=== PATIENT | female | born 2000 | race Caucasian/White ===

== ENCOUNTER 2023-10-25 22:42 | Emergency (ER) | payer OTHER ==
[~2023-10-25] VITALS: Ht 165.1 cm; Wt 52.2 kg
[2023-10-26] MEDS: LIDOCAINE HCL 2% 20 ML VIAL TP ONE (00:24)
[2023-10-26] MEDS ORDERED: SULFAMETH/TRIMETH 800/160 MG TABLET ONE (00:25)
[2023-10-26] MEDS ORDERED: IBUPROFEN 400 MG TABLET ONE (00:25)
[2023-10-26] MEDS ORDERED: HYDROCODONE/APAP 5-325MG TABLET ONE (00:26)
[2023-10-26] MEDS: SULFAMETH/TRIMETH 800/160 MG TABLET PO ONE (00:28)
[2023-10-26] MEDS: IBUPROFEN 400 MG TABLET PO ONE (00:28)
[2023-10-26] MEDS: HYDROCODONE/APAP 5-325MG TABLET PO ONE (00:29)
[2023-10-26] MEDS ORDERED: SULF1TAB48 PO (00:29)
[2023-10-26] MEDS ORDERED: NAPR-1009 PO (00:29)
[2023-10-26 01:27] VITALS: BP 110/82; TEMP 97.8; O2SAT 100
== END 2023-10-26 01:00 | disposition home or self-care (01) ==
LOC: ER 22:51
DX: L02.412 Cutaneous abscess of left axilla (principal); L03.114 Cellulitis of left upper limb; Z79.899 Other long term (current) drug therapy
CPT/HCPCS: A4606; A4663

== ENCOUNTER 2024-11-26 20:59 | Emergency (ER) | payer MEDICAID, OTHER ==
[~2024-11-26] VITALS: Ht 165.1 cm; Wt 49.9 kg
[~2024-11-26 20:59] MED LIST: NAPR-1009 PO; SULF1TAB48 PO
[2024-11-26] MEDS ORDERED: CLOT15CR5 TP (21:39)
[2024-11-26] MEDS ORDERED: PRED20TA PO (21:39)
[2024-11-26 21:48] VITALS: BP 112/69; TEMP 98; O2SAT 99
== END 2024-11-26 21:51 | disposition home or self-care (01) ==
LOC: ER 21:15
DX: R21 Rash and other nonspecific skin eruption (principal); Z79.52 Long term (current) use of systemic steroids
CPT/HCPCS: A4606; A4663